=== PATIENT | female | born 1990 | race African-American/Black ===

== ENCOUNTER 2016-07-04 13:04 | Emergency (ER) | payer OTHER ==
[~2016-07-04] VITALS: Ht 175.3 cm; Wt 63.5 kg
[2016-07-04 13:09] VITALS: BP 142/90
[2016-07-04 14:42] LABS: AMP/METHAMP Negative (Negative); BARBITURATES Negative (Negative); BENZODIAZEPINES Negative (Negative); COCAINE Negative (Negative); METHADONE Negative (Negative); OPIATES Negative (Negative); PCP Negative (Negative); THC POSITIVE (Negative)
== END 2016-07-04 15:00 | disposition home or self-care (01) ==
LOC: ER 13:04
PROVIDERS: Emergency Medicine
DX: S09.8XXA Other specified injuries of head, initial encounter (principal); Z98.890 Other specified postprocedural states; F10.99 Alcohol use, unspecified with unspecified alcohol-induced disorder; V89.2XXA Person injured in unspecified motor-vehicle accident, traffic, initial encounter; Y93.89 Activity, other specified; Y92.89 Other specified places as the place of occurrence of the external cause; Y99.8 Other external cause status